=== PATIENT | male | born 1970 | race Caucasian/White ===

== ENCOUNTER 2024-05-22 12:25 | Emergency (ER) | payer OTHER, SELFPAY ==
[2024-05-22 12:28] VITALS: BP 189/98
--- NOTE | 2024-05-22 12:55 | ED.GENMED ---
History of Present Illness
<Melody Harrell PA-C - Last Filed: 05/22/24 18:01>
General
Chief Complaint: Blood Pressure Problem
Source: patient
Exam Limitations: none
Time Seen by Provider: 05/22/24 12:55
Nursing documentation reviewed up to this point in time: agreed with
History of Present Illness
History of Present Illness:
This is a 54 y/o male with a PMH of migraine disorder presenting the emergency department today with concerns of high blood pressure. Patient states that he reported to the emergency department today with concerns of a sebaceous cyst and went to
because his derm office was closed, and he subsequently started on an antibiotic. Patient reports that the only reason why he is here is because urgent care noted his blood pressure to be 191/101 and advised him to report to the emergency
department for this. Upon arrival to emergency department, patient's blood pressure was 189/98 and subsequently 150/100. I rechecked his blood pressure and it was 170/95 in the room during my evaluation. Patient denies any chest pain, shortness
of breath, weakness, difficulty speaking, confusion, decreased urinary output, vomiting, abdominal pain, headache. Patient denies any visual changes. Patient states he follows with his family doctor once a year and states that last year during his
physical, they note that his blood pressure was elevated and was told that he might have to start blood pressure medication soon. Patient never been on any medication for blood pressure. Patient has no chronic medical conditions, no history of
hyperlipidemia.
Past History
<Melody Harrell PA-C - Last Filed: 05/22/24 18:01>
Past History
ED Past Medical History: None
ED Past Surgical History: None
Review of Systems
<Melody Harrell PA-C - Last Filed: 05/22/24 18:01>
Review of Systems
All Other Systems: ROS reviewed and negative except as documented in HPI and ROS
Phy Exam
<Melody Harrell PA-C - Last Filed: 05/22/24 18:01>
Physical Exam
Physical Exam:
General: Patient is well appearing and in no acute distress; non-toxic
Skin: Warm and dry, no rashes or lesions
Head: Normocephalic, atraumatic
Eyes: Sclera non-icteric. EOMs intact. PERRLA.
Cardiac: Regular rate and rhythm, no murmurs
Peripheral Vascular: No lower extremity swelling or edema
Pulm: Normal respiratory effort, no wheezes, rales, or rhonchi.
Neuro: CN II-XII intact, no focal neurologic deficits.
Psychiatric: Appropriate mood and affect.
Course
<Melody Harrell PA-C - Last Filed: 05/22/24 18:01>
Orders/Labs/Results
Orders:
Orders
05/22/24 13:32
Complete Blood Count/With Diff Urgent
Comprehensive Metabolic Panel Urgent
05/22/24 13:49
Electrocardiogram (*1) Urgent
Reason for Study: Hypertension, Benign
EKG- Treatment ONCE
05/22/24 13:32
05/22/24 13:32
Vital Signs
Initial and Last Documented VS:
Initial Vital Signs
Temp Pulse Resp BP Pulse Ox
97.8 F 68 16 189/98 99
05/22/24 12:28 05/22/24 12:28 05/22/24 12:28 05/22/24 12:28 05/22/24 12:28
Last Documented Vital Signs
Temp Pulse Resp BP Pulse Ox
98.5 F 63 17 145/91 98
05/22/24 13:00 05/22/24 14:13 05/22/24 13:45 05/22/24 14:00 05/22/24 14:00
<Radha Tucker DO - Last Filed: 05/22/24 14:39>
Orders/Labs/Results
Orders:
Orders
05/22/24 13:32
Complete Blood Count/With Diff Urgent
Comprehensive Metabolic Panel Urgent
05/22/24 13:49
Electrocardiogram (*1) Urgent
Reason for Study: Hypertension, Benign
EKG- Treatment ONCE
05/22/24 13:32
05/22/24 13:32
Vital Signs
Initial and Last Documented VS:
Initial Vital Signs
Temp Pulse Resp BP Pulse Ox
97.8 F 68 16 189/98 99
05/22/24 12:28 05/22/24 12:28 05/22/24 12:28 05/22/24 12:28 05/22/24 12:28
Last Documented Vital Signs
Temp Pulse Resp BP Pulse Ox
98.5 F 63 17 145/91 98
05/22/24 13:00 05/22/24 14:13 05/22/24 13:45 05/22/24 14:00 05/22/24 14:00
<Melody Harrell PA-C - Last Filed: 05/22/24 18:01>
MDM/Problems Addressed
Differential Diagnosis Includes:
ddx include essential hypertension, white coat syndrome, renal artery stenosis
MDM/Problems Addressed:
Hypertension:
This is a 54 y/o male with a PMH of migraine disorder presenting the emergency department today with concerns of high blood pressure. Patient states that he reported to the emergency department today with concerns of a sebaceous cyst and went to
because his derm office was closed, and he subsequently started on an antibiotic. At the urgent care, his blood pressure was 191/101. Here in the emergency department, he is completely asymptomatic. He denies chest pain, shortness of breath, visual
changes, weakness, confusion. On exam he is well appearing, his heart is regular rate and rhythm, he has no focal neurologic deficits. His CMP and CBC are unremarkable, and his EKG shows normal sinus rhythm. Patient stable for discharge, advised to
keep a blood pressure log, will follow-up with his primary. Patient stable for discharge.
Chronic conditions affecting care:
n/a
Acute Exacerbation and/or Progression of Chronic Illness:
n/a
<Melody Harrell PA-C - Last Filed: 05/22/24 18:01>
*Pulse Oximetry
Patient hypoxic: no
*EKG
Interpreted by ED Provider?: Yes
EKG Intrepretation Date: 05/22/24
Interpretation: normal
Comparison EKG: no changes
Heart Rate: 61
Rate: normal
Rhythm: sinus
[place]: normal axis
Interval: normal interval
QRS Pattern: normal QRS
Ischemia: no ischemia
*Critical Care Note
Total Time (30-74mins, 75-104mins- exclusive of procedures): Not Applicable
Data Reviewed
Review of Other/Old Records Reveals: Records (reviewed ER physician documentation from 01/12/23) and Discharge Summary (no discharge summary in [facility] to review)
Source: patient and records
Prescriptions/Medications Considered But Not Given:
Considered starting a antihypertensive however patient has close outpatient follow-up
Further Testing Considered But Not Given:
n/a
ED Attending Note
<Melody Harrell PA-C - Last Filed: 05/22/24 18:01>
-
Portions of this chart may have been created with voice recognition software.� Occasional wrong word or��sound alike� substitutions may have occurred due to the inherent limitations of voice recognition software.
<Radha Tucker DO - Last Filed: 05/22/24 14:39>
ED Attending Note
Patient seen and examined by attending physician: Yes
I performed the substantive portion of visit, reviewed & personally made and approve the management plan that is documented in note by myself or YANELIS.: Yes
I performed a history and physical exam of patient and discussed management with resident, I reviewed resident's note and agree with documented findings and plan of care.: Yes
ED Attending Note:
Patient seen and evaluated at bedside, 54-year-old male presenting for high blood. Patient went to urgent care because he had a cyst on his back. Notes that the urgent care took care of the cyst, prescribed antibiotics, however while checking his
vital signs, was told that his blood pressure was elevated. Reports that in the past he has been told that his blood pressure was elevated, however never started on antihypertensive medications. His primary care doctor said that they would
continue to follow his blood pressure. He is due for a physical. He denies any chest pain, difficulty breathing, headache, visual changes, weakness or numbness to his extremities. He is currently asymptomatic. Vital signs on arrival are
significant for blood pressure.
On exam, patient well-appearing, no acute distress. Unremarkable cardiac and pulmonary exam. Suspect asymptomatic high blood pressure. No focal neurologic deficits or concern neurologic process, with lower suspicion for hypertensive urgency or
emergency. Screening laboratory analysis sent, unremarkable. EKG obtained sinus rhythm without acute ischemia. Patient's blood pressure has improved and resolved without intervention, now 145/91. At this time do not feel patient requires any
emergent antihypertensive medication. Advise close follow-up with PCP within the next 1 to 2 weeks. He reports that he will make an appointment. However, strict return precautions were communicated including any development of chest pain,
difficulty breathing, lightheadedness, dizziness, visual changes, weakness. Patient verbalized understanding
Discharge Plan
Departure
Patient Disposition: Home (Routine Discharge)
Date of Disposition: 05/22/24
Time of Disposition: 14:36
Patient with high blood pressure during this ER visit?: Yes
Condition: Good
Discharge Problem:
High blood pressure
Instructions: BLOOD PRESSURE
Prescriptions:
No Action
fexofenadine [Olga] 30 MG tablet
30 mg PO PRN PRN (Reason: allergies)
meloxicam 15 MG tablet
15 mg PO R DAILYPRN PRN (Reason: pain)
Referrals:
Gautam Chino MD [Family Provider] -
Activity Restrictions/Additional Instructions:
Please return to emergency department should you experience chest pain, shortness of breath, weakness, confusion, dizziness, lightheadedness, visual changes, headache, or any other signs or symptoms concerning to you.
Please call your primary care provider to schedule appointment for follow-up
Interventions
Interventions:
*Risk Screen - Suicide Last Done: 05/22/24 12:58
*General Assessment Last Done: 05/22/24 12:28
*Neglect/Abuse Screening Last Done: 05/22/24 12:58
ED- Fall Risk Assessment Last Done: 05/22/24 14:55
*ED COVID-19 Vaccine History Last Done: 05/22/24 12:28
*Nursing Disposition Last Done: 05/22/24 14:55
ED- Cardiac Assessment Last Done: 05/22/24 12:58
ED- Neurological Assessment Last Done: 05/22/24 12:58
ED- Pulmonary Assessment Last Done: 05/22/24 12:58
Discharge Date and Time
Discharge Date/Time: 05/22/24 14:55
Print Language: [email or web address]
[2024-05-22 12:58] VITALS: BMI 28.0
[2024-05-22 13:00] VITALS: BP 150/100
[2024-05-22 13:18] VITALS: BP 170/95
[2024-05-22 13:47] LABS: % Eosinophils 1.8 % (0-6); % Immature Granulocytes 0.2 % (0-0.5); % Monocytes 8.7 % (1.7-9.3); % Neutrophils 66.3 % (42.2-75.2); Absolute Basophils 0.1 10^3/uL (0-0.2); Absolute Eosinophils 0.1 10^3/uL (0-0.7); Absolute Lymphocytes 1.3 10^3/uL (1.2-3.4); Absolute Monocytes 0.5 10^3/uL (0.1-0.6); Hematocrit 43.1 % (39.0-52.0); Hemoglobin 15.1 g/dL (13.0-18.0); Mean Corpuscular Volume 88.5 fL (80.0-94.0); Nucleated Red Blood Cells % 0 % (-); Platelet Count 215 10^3/uL (130-400); Red Blood Cell Count 4.87 10^6/uL (4.70-6.10); Red Cell Dist. Width 12.6 % (11.5-14.5)
[2024-05-22 13:53] LABS: ALT (SGPT) 25 U/L (0-50); AST (SGOT) 30 U/L (17-59); Albumin 3.9 g/dl (3.5-5.0); Alkaline Phosphatase 63 U/L (38-126); Blood Urea Nitrogen 12 mg/dl (9-20); Calcium 8.7 mg/dl (8.4-10.2); Carbon Dioxide 27 mmol/L (22-30); Chloride 103 mmol/L (98-107); Estimated Creatinine Clearance 116 ml/min; Glucose 92 mg/dl (70-99); Potassium 4.1 mmol/L (3.5-5.1); Sodium 136 mmol/L (135-145); Total Bilirubin 1.1 mg/dl (0.2-1.3); Total Protein 6.5 g/dl (6.3-8.2); eGFR > 60.00
[2024-05-22 14:00] VITALS: BP 145/91
== END 2024-05-22 14:55 | disposition home or self-care (01) ==
LOC: EMR 12:25
PROVIDERS: Physician Assistant; EMERGENCY PHYSICIAN Student in an Organized Health Care Education/Training Program; FAMILY PHYSICIAN Internal Medicine
DX: I10 Essential (primary) hypertension (principal)
CPT/HCPCS: 99284; 80053; 85025; 93005

== ENCOUNTER → 2024-08-15 11:46 | Outpatient (REF) | payer OTHER, SELFPAY | LOC: DHSLP 11:46 | PROVIDERS: ATTENDING PHYSICIAN Nurse Practitioner; FAMILY PHYSICIAN Internal Medicine | DX: G47.33 Obstructive sleep apnea (adult) (pediatric) (principal) | CPT/HCPCS: 95800 ==